=== PATIENT | female | born 1990 | race Caucasian/White ===

== ENCOUNTER 2020-10-25 19:35 | Observation (INO) | payer OTHER, SELFPAY ==
--- NOTE | ~2020-10-25 | CT_ITS ---
EXAMINATION: CT abdomen pelvis w con EXAM DATE: 10/25/2020 20:45 INDICATION: Abdominal pain, periumbilical pain. Recent hernia surgery. TECHNIQUE: Spiral CT of the abdomen and pelvis was performed following intravenous injection of 100 m L Omnipaque 350. Axial, coronal and sagittal images were reviewed. The dose-length product (DLP) fo r this examination was 1447.72 mGy-cm. The exposure was tailored according to patient size (auto mA exposure control), and iterative reconstruction (ASIR) was used as additional dose reduction techniqu e. There is no prior study for comparison. FINDINGS: The umbilicus is unremarkable. There is a small midline abdominal hernia midway between umb ilicus and pubis with ileum bulging inside. (Indicated on axial image 149). Mild small bowel distenti on for couple of loops proximal to the herniated segment, and distally the terminal ileum is collapse d. Material within the small bowel has slightly feculent material, could indicate stasis. To the righ t of the hernia within subcutaneous fat there is a pocket of fluid measuring 16 cm in diameter by 4 c m in thickness, most likely postoperative seroma. The liver, spleen, adrenal glands and pancreas are unremarkable. There are cholecystectomy clips. P ortal and splenic veins are patent. Kidneys enhance symmetrically. There is no hydronephrosis. Ther e is bilateral nephrolithiasis, largest in the right side measuring 7 mm. The uterus is unremarkable . The bladder is unremarkable. There is no retroperitoneal or pelvic lymphadenopathy. The appendix is normal. There is small amount of colonic stool. No free intraperitoneal gas. The heart is normal in size. There are no pericardial or pleural effusions. The lung bases are unremar kable. There are no osteoblastic or osteolytic lesions identified. IMPRESSION: Infraumbilical small hernia containing small bowel loop with mild dilation proximally and evidence of some stasis. Appearance most consistent with partial small bowel obstruction. Consider w ater-soluble follow-through exam. Reviewed, dictated and finalized at location G. ND HULLER IMPRESSION: Infraumbilical small hernia containing small bowel loop with mild d ilation proximally and evidence of some stasis. Appearance most consistent with partial small bowel obstruction. Consider water-soluble follow-through exam.
[2020-10-25 19:44] VITALS: BP 134/68; PULSE 85; RESP 18; O2SAT 99
[2020-10-25] MEDS: SODIUM CHLORIDE 0.9% IV 1,000 ML 150 ML IV CONT (20:09)
[2020-10-25] MEDS: fentaNYL CITRATE INJ (*CRX) 100 MCG/2 ML VIAL 50 MCG IV PUSH (20:09)
[2020-10-25 20:10] LABS: Basophils Absolute Auto 0.1 K/mm3 (0.0-0.1); Basophils Percent Auto 0.5 % (0.2-1.2); Eosinophils Absolute Auto 0.2 K/mm3 (0-0.3); Eosinophils Percent Auto 1.8 % (0-4.4); Hematocrit 42.1 % (37.0-47.0); Hemoglobin 13.2 g/dL (12.0-15.0); Immature Granulocyte Absolute 0.04 K/mm3 (0.00-0.031); Immature Granulocyte Percent A 0.3 % (0-0.5); Lymphocytes Absolute Auto 3.52 K/mm3 (0.9-3.2); Lymphocytes Percent Auto 30.3 % (18.3-44.2); Mean Corpuscular HGB Conc 31.4 g/dl (32-36); Mean Corpuscular Hemoglobin 24.5 pg (26-34); Mean Corpuscular Volume 78.1 fl (80-100); Mean Platelet Volume 11.1 fl (7.4-10.4); Monocytes Absolute Auto 0.6 K/mm3 (0.1-0.6); Monocytes Percent Auto 5.2 % (2.6-8.5); Neutrophils Absolute Auto 7.2 K/mm3 (1.3-6.7); Neutrophils Percent Auto 61.9 % (45.5-73.1); Platelet Count Result 318 k/mm3 (150-375); Red Blood Count 5.39 M/mm3 (4.2-5.4); Red Cell Distribution Width 18.6 % (11.5-14.5); White Blood Count 11.6 K/mm3 (4.5-10.0)
[2020-10-25 20:13] LABS: Add Urine Microscopic? NO; Appearance Urine Clear (Clear); Bilirubin Urine Negative (Negative); Blood Urine Negative (Negative); Color Urine Straw (Yellow); Glucose Urine UA Negative (Negative); Ketones Urine Negative (Negative); Leukocyte Esterase Ur Negative LEU/UL (Negative); Nitrate Urine Negative (Negative); Protein Urine Negative (Negative); Specific Grav Ur 1.008 (1.001-1.035); Urobilinogen Urine Negative mg/dL (<2.0)
[2020-10-25 20:23] LABS: Alanine Aminotransferase 27 U/L (4-35); Albumin Level 4.2 g/dL (3.5-5.1); Alkaline Phosphatase 94 U/L (38-126); Anion Gap 6 mmol/L (8-16); Aspartate Amino Transferase 31 U/L (14-36); Bilirubin,Total 0.3 mg/dL (0.2-1.3); Blood Urea Nitrogen 13 mg/dL (7-17); Calcium 8.8 mg/dL (8.4-10.2); Carbon Dioxide 28 mmol/L (22-30); Chloride 103 mmol/L (98-107); Estimated CRCL calculation 121 ml/min; Estimated Glomerular Filt Rate > 60; Glucose 95 mg/dL (65-105); Potassium 4.1 mmol/L (3.4-5.0); Sodium 137 mmol/L (137-145)
[2020-10-25] MEDS: KETOROLAC 30 MG/ML VIAL (*BKC) IV PUSH (20:56)
[2020-10-25 21:17] LABS: Lactic Acid Reflex 0.8 mmol/L (0.7-2.1)
--- NOTE | 2020-10-25 21:17 | ED.ABDPAIN ---
HPI - Abdominal Pain General Chief Complaint: Abdominal Pain Stated Complaint: abd pain, kidney stone Time Seen by Provider: 10/25/20 19:45 Source: patient Mode of arrival: ambulatory Limitations: no limitations History of Present Illness HPI narrative: 30-year-old with no major medical problems here with complaints of abdominal pain since last 2 days. Patient states that she had umbilical hernia repair a year ago at [facility]. Patient states that she went to the [facility] yesterday for the same, had a CAT scan which showed kidney stone and was discharged home with pain medication however since this afternoon the pain got intense. She denies any nausea or vomiting had diarrhea yesterday. She denies any blood in the urine or blood in the stool. MD elicited complaint: abdominal pain Pertinent past history: none Onset (ago): day(s) (2) Pain Consistency: constant Quality: cramping Exacerbating factors: nothing Relieving factors: nothing Related Data Allergies Allergy/AdvReac Type Severity Reaction Status Date / Time No Known Allergies Allergy Verified 05/12/18 19:55 Review of Systems Review of Systems: All systems reviewed & are unremarkable except as noted in HPI and below Constitutional: Constitutional: Reports no additional constitutional complaints Eyes: Eyes: Reports no additional eye complaints ENT: Reports system reviewed and no additional complaints, except as documented Cardiovascular: Cardiovascular: Reports no additional cardiovascular complaints Respiratory: Respiratory: Reports no additional respiratory complaints Gastrointestinal: Gastrointestinal: Reports as per HPI Genitourinary: Genitourinary: Reports no additional female genitourinary complaints Musculoskeletal: Musculoskeletal: Reports no additional musculoskeletal complaints [facility] Family History Family History Father Family history of diabetes mellitus in first degree relative Sibling Family history of diabetes mellitus in first degree relative Social History Social History Alcohol intake: never Gender identity (if verbalized by the patient): Female Exam Narrative: Exam Narrative: GENERAL: Well-appearing, obese and in no acute distress. HEAD: Normocephalic, atraumatic. EYES: PERRLA and EOMI. ENT: Nares clear, no rhinorrhea or epistaxis. Mucous membranes moist. NECK: Supple. CHEST: Clear to auscultation. No respiratory distress. HEART: Regular rate and rhythm. No murmur heard. Normal peripheral pulses. ABDOMEN: morbidly obese abdomen.tender in the periumbilical area . EXTREMITIES: Normal range of motion. No edema. SKIN: Warm, dry, no rash. NEURO: No focal deficits. Alert and oriented x3. PSYCH: Normal mood and affect. Course Course Emergency Course: Patient does feel comfortable after the pain medication, I discussed labs and CT findings with the patient. Discussed with Dr. Sepulveda who agreed to admit the patient. Vital Signs Vital signs: Vital Signs Pulse Rate 85 10/25/20 19:44 Respiratory Rate 18 10/25/20 19:44 Blood Pressure 134/68 10/25/20 19:44 Pulse Oximetry 99 10/25/20 19:44 Pulse Rate 85 10/25/20 19:44 Respiratory Rate 18 10/25/20 19:44 Blood Pressure 134/68 10/25/20 19:44 Pulse Oximetry 99 10/25/20 19:44 MDM - Abdominal Pain Differential Diagnosis Differential diagnosis: Likely abdominal pain, acute appendicitis, calculus of kidney and gastroenteritis Medical Records Attestation: I reviewed the patient's medical records. Lab Data Result diagrams: 10/25/20 20:00 10/25/20 20:00 Labs: Lab Results 10/25/20 10/25/20 10/25/20 Range/Units 20:00 20:00 20:02 WBC 11.6 H (4.5-10.0) K/mm3 RBC 5.39 (4.2-5.4) M/mm3 Hgb 13.2 (12.0-15.0) g/dL Hct 42.1 (37.0-47.0) % MCV 78.1 L (80-100) fl MCH 24.5 L (26-34) pg MCHC 31.4 L (32-36) g/d
[2020-10-25 21:38] VITALS: BP 142/68; PULSE 68; RESP 16; O2SAT 100
--- NOTE | 2020-10-25 22:23 | ADMGEN ---
This patient, Milli Morales, was admitted to Medical Room 249-01 at 2200. Patient/family oriented to hospital policies and general routines including ID bracelet, bed and alarms, visiting hours, pain management, procedures, bathroom and other care routines, personal items, smoking policy, room service/diet, and visiting hours. Information on how to activate the Rapid Response Team has been discussed. Patient/Family are encouraged to report perceived risks to care and to ask questions if they do not understand what they are told or what they should do.
[2020-10-25 22:30] VITALS: BMI 44.3
[2020-10-25 22:51] VITALS: BP 108/54; PULSE 53; RESP 16; TEMP 36.6; O2SAT 100
[2020-10-25] MEDS: SODIUM CHLORIDE 0.9% IV 1,000 ML 75 ML IV CONT (22:52)
[2020-10-25] MEDS: HYDROmorphone HCL INJ (*CRX) 1 MG/ML SYR 0.5 MG IV PUSH (22:53)
[2020-10-26] VITALS: BP 106/46; PULSE 52; RESP 20; TEMP 36.1; O2SAT 99
[2020-10-26] MEDS: HYDROmorphone HCL INJ (*CRX) 1 MG/ML SYR 0.5 MG IV PUSH ×2 (04:29→09:00)
[2020-10-26] MEDS: NICOTINE (*PBKC) 14 MG PATCH 1 PATCH TRANSDERM (04:30)
[2020-10-26 05:41] LABS: Basophils Absolute Auto 0.1 K/mm3 (0.0-0.1); Basophils Percent Auto 0.8 % (0.2-1.2); Eosinophils Absolute Auto 0.2 K/mm3 (0-0.3); Eosinophils Percent Auto 2.4 % (0-4.4); Hematocrit 37.7 % (37.0-47.0); Hemoglobin 11.5 g/dL (12.0-15.0); Immature Granulocyte Absolute 0.03 K/mm3 (0.00-0.031); Immature Granulocyte Percent A 0.4 % (0-0.5); Lymphocytes Absolute Auto 2.74 K/mm3 (0.9-3.2); Lymphocytes Percent Auto 34.4 % (18.3-44.2); Mean Corpuscular HGB Conc 30.5 g/dl (32-36); Mean Corpuscular Hemoglobin 23.7 pg (26-34); Mean Corpuscular Volume 77.7 fl (80-100); Mean Platelet Volume 11.1 fl (7.4-10.4); Monocytes Absolute Auto 0.6 K/mm3 (0.1-0.6); Monocytes Percent Auto 7.3 % (2.6-8.5); Neutrophils Absolute Auto 4.4 K/mm3 (1.3-6.7); Neutrophils Percent Auto 54.7 % (45.5-73.1); Platelet Count Result 229 k/mm3 (150-375); Red Blood Count 4.85 M/mm3 (4.2-5.4); Red Cell Distribution Width 18.1 % (11.5-14.5)
[2020-10-26 06:00] VITALS: BP 101/50; PULSE 57; RESP 20; TEMP 36.3; O2SAT 98
[2020-10-26 06:54] LABS: Anion Gap 4 mmol/L (8-16); Blood Urea Nitrogen 12 mg/dL (7-17); Calcium 7.9 mg/dL (8.4-10.2); Carbon Dioxide 22 mmol/L (22-30); Chloride 108 mmol/L (98-107); Estimated CRCL calculation 135 ml/min; Estimated Glomerular Filt Rate > 60; Glucose 86 mg/dL (65-105); Potassium 3.9 mmol/L (3.4-5.0); Sodium 134 mmol/L (137-145)
--- NOTE | 2020-10-26 08:54 | PM.IMHP ---
H&P: HPI History of Present Illness Date/Time: 10/26/20 08:54 Chief Complaint: recurrent ventral hernia c incarceration of small bowel Narrative: Milli Morales is a 30 year old female presenting to ED c/o severe periumbilical/lower abdominal pain over last few days. Pt reports pain is intense and constant. Pt denies any obstructive sx but reports poor appetite secondary to pain. Pt reports she had RLQ hernia repair at [facility] on 08/27. Pt reports she initially had done well until this pain started. Pt actually went to [place] for these symptoms but was told to go to another hospital for treatment of kidney stone found on CT. Review of Systems Constitutional: Constitutional: Denies anorexia, Reports body ache(s), Denies chills, Reports fatigue, Denies fever(s), Denies headache(s), Reports lethargy, Denies malaise, Reports poor appetite, Reports weakness, Denies weight gain and Denies weight loss Eyes: Eyes: Reports no additional eye complaints ENT: Reports system reviewed and no additional complaints, except as documented Cardiovascular: Cardiovascular: Reports no additional cardiovascular complaints Respiratory: Respiratory: Reports no additional respiratory complaints Gastrointestinal: Gastrointestinal: Reports abdominal pain, Denies belching, Denies bloating, Denies change in bowel habits, Denies constipation, Reports GI cramping, Denies heartburn, Denies loose stools, Denies nausea and Denies vomiting Genitourinary: Genitourinary: Reports no additional female genitourinary complaints Musculoskeletal: Musculoskeletal: Reports no additional musculoskeletal complaints Integumentary/Breasts: Skin/Breast: Reports system reviewed and no additional complaints, except as docu Neurologic: Reports system reviewed and no additional complaints, except as documented Psychiatric: Psychiatric: Reports no additional psychiatric complaints Endocrine: Endocrine: Reports no additional endocrine complaints Hematologic/Lymphatic: Hematologic/Lymphatic: Reports no additional hematologic/lymphatic complaints Allergic/Immunologic: Allergic/Immunologic: Reports no additional allergic/immunologic complaints [facility] Family History Family History Father Family history of diabetes mellitus in first degree relative Sibling Family history of diabetes mellitus in first degree relative Social History Social History Smoking packs per day: 0.5 Smoking cigarettes per day: 10.0 Years smoked: 15 Smoking pack-years: 7.50 Smoking status: Current every day smoker Tobacco type: cigarettes Alcohol intake: never Substance use: current Substance use type: marijuana Gender identity (if verbalized by the patient): Female Spiritual care concerns: No Comments PMH - tobacco use, RLQ ventral hernia PSxH - RLQ ventral hernia repair Meds Home Medications and Allergies Home Medications Medication Instructions Recorded Confirmed Type No Home Medications 10/25/20 10/25/20 History Allergies Allergy/AdvReac Type Severity Reaction Status Date / Time No Known Allergies Allergy Verified 05/12/18 19:55 Vital Signs Vital Signs - 24 hr 10/25/20 19:44 10/25/20 21:38 10/25/20 22:51 Temperature 36.6 C Pulse Rate 85 68 53 L Respiratory Rate 18 16 16 Blood Pressure 134/68 142/68 H 108/54 L Pulse Oximetry 99 100 100 10/26/20 00:00 10/26/20 06:00 Temperature 36.1 C L 36.3 C L Pulse Rate 52 L 57 L Respiratory Rate 20 20 Blood Pressure 106/46 L 101/50 L Pulse Oximetry 99 98 Exam Const: General: cooperative, acute distress moderate and uncomfortable Nutritional Appearance: obese Orientation/consciousness: patient oriented x3 Limitations: no limitations HENMT: Head: normal to inspection, normocephalic and atraumatic Ears: hearing grossly normal bilaterally General nose exam: Normal exte
[2020-10-26] MEDS: ONDANSETRON INJ 4 MG/2 ML VIAL IV PUSH (09:07)
[2020-10-26 10:00] VITALS: BP 111/60; PULSE 50; RESP 14; TEMP 36.1; O2SAT 100
--- NOTE | 2020-10-26 10:32 | PM.DS ---
DS: Admitting Diagnosis Admitting Diagnosis Admitting Diagnosis: recurrent ventral hernia with incarceration and partial small bowel obstruction DS: Discharge Diagnosis Discharge Diagnosis (1) Recurrent ventral hernia with incarceration: Code(s): K43.0 - Incisional hernia with obstruction, without gangrene Status: Acute Assessment and Plan: pt to see her surgeon today post discharge (2) Partial small bowel obstruction: Code(s): K56.600 - Partial intestinal obstruction, unspecified as to cause Status: Acute Assessment and Plan: alfred diet and having normal bowel fxn at this time, will need urgent repair of hernia DS: Summary Hospital Course Reason for hospitalization: abdominal pain, recurrent ventral hernia Hospital Course: The patient is a 30-year-old female presenting to the emergency department complaining of severe lower abdominal pain. Workup in the emergency department including imaging was significant for recurrent incarcerated ventral hernia with partial small bowel obstruction. The patient was admitted to my service and transferred to the floor. Of note, the patient was able to tolerate a diet at home and was having normal bowel function. After discussion with both patient and her surgeon at [facility], decision was made to send patient there for visit today. The patient will be discharged and will be following up with Dr. Baugh today. Status at Discharge Functional status at discharge: independent ambulation Overall status at discharge: patient is not back to baseline Time Spent with Patient Time attestation: Total time spent providing and/or coordinating discharge services: Time spent: Less than 30 minutes Exam Const: General: cooperative and acute distress moderate Nutritional Appearance: obese Orientation/consciousness: patient oriented x3 Limitations: no limitations Resp: Effort & Inspection: normal respiratory effort Auscultation: clear to auscultation bilaterally Cardio: Jugular venous distension: no JVD Rate: regular rate Rhythm: regular rhythm GI: Inspection: distended and incision GI Palp: Yes abdominal tenderness, Yes Soft to palpation, No Firmness to palpation present (GI), Yes Tenderness to palpation present (GI), No Guarding due to palpation present (GI) and No Rigid due to palpation DS: Data Data Completed and Pending Labs on day of discharge: Labs from last 24 hours 10/26/20 10/26/20 10/25/20 06:26 05:27 21:01 WBC 8.0 RBC 4.85 Hgb 11.5 L Hct 37.7 MCV 77.7 L MCH 23.7 L MCHC 30.5 L RDW 18.1 H Plt Count 229 MPV 11.1 H Immature Gran % (Auto) 0.4 Neut % (Auto) 54.7 Lymph % (Auto) 34.4 [place] % (Auto) 7.3 Eos % (Auto) 2.4 Baso % (Auto) 0.8 Lymph # (Auto) 2.74 [place] # (Auto) 0.6 Eos # (Auto) 0.2 Baso # (Auto) 0.1 Abs Immat Gran (auto) 0.03 Absolute Neuts (auto) 4.4 Absolute Nucleated RBC 0.0 Nucleated RBC % 0.0 Sodium 134 L Potassium 3.9 Chloride 108 H Carbon Dioxide 22 Anion Gap 4 L BUN 12 Creatinine 0.70 Estim Creat Clear Calc 135 Estimated GFR > 60 Glucose 86 Lactic Acid 0.8 Calcium 7.9 L Total Bilirubin AST ALT Alkaline Phosphatase Total Protein Albumin Urine Color Urine Appearance Urine pH Ur Specific [place] Urine Protein Urine Glucose (UA) Urine Ketones Ur Blood (Man) Urine Nitrate Urine Bilirubin Urine Urobilinogen Leukocyte Esterase Rfl 10/25/20 10/25/20 10/25/20 20:02 20:00 20:00 WBC 11.6 H RBC 5.39 Hgb 13.2 Hct 42.1 MCV 78.1 L MCH 24.5 L MCHC 31.4 L RDW 18.6 H Plt Count 318 MPV 11.1 H Immature Gran % (Auto) 0.3 Neut % (Auto) 61.9 Lymph % (Auto) 30.3 [place] % (Auto) 5.2 Eos % (Auto) 1.8 Baso % (Auto) 0.5 Lymph # (Auto) 3.52 H [place] # (Auto) 0.6 Eos # (Auto) 0.2 Baso # (Auto)
== END 2020-10-26 11:00 | disposition home or self-care (01) ==
LOC: ANHED 21:25 → ANH2MED 21:50
PROVIDERS: Admitting Provider Surgery; Emergency Provider Family Medicine; PCP Internal Medicine; Visit Provider Surgery
DX: K43.0 Incisional hernia with obstruction, without gangrene (principal); K56.600 Partial intestinal obstruction, unspecified as to cause; R10.9 Unspecified abdominal pain; Z72.0 Tobacco use
CPT/HCPCS: 36415; 74177; 80048; 80053; 81003; 83605; 85025; 96361; 96374; 96375; 96376; 99285; A9270; G0378; G0379; J1170; J1885; J2405; J3010; J7030; Q9967

== ENCOUNTER 2021-06-19 06:53 | Emergency (ER) | payer OTHER, SELFPAY ==
--- NOTE | ~2021-06-19 | CT_ITS ---
EXAMINATION: CT abdomen pelvis wo con EXAM DATE: 06/19/2021 08:44 INDICATION: Bilateral flank pain, hematuria. History kidney stones. TECHNIQUE: Spiral CT of the abdomen and pelvis was performed without contrast. Axial, coronal and sag ittal images were reviewed. The dose-length product (DLP) for this examination was 803.69 mGy-cm. T he exposure was tailored according to patient size (auto mA exposure control), and iterative reconstr uction (ASIR) was used as additional dose reduction technique. Comparison is made to prior examinatio n from 10/25/2020. FINDINGS: Mildly hyperdense in renal medullas, mild medullary nephrocalcinosis. There is a right infe rior calyceal stone measuring 8 mm. Several other punctate calyceal stones bilaterally. There is [place] 2 mm density along the course of the left ureter, but suspected more likely vascular than nonobs tructing ureteral stone. The uterus is anteverted and morphologically normal. The bladder is unremarkable. The liver, splee n, adrenal glands and pancreas are unremarkable. There are cholecystectomy clips. There is no retro peritoneal or pelvic lymphadenopathy. section scar. The appendix is normal. The stomach and small bowel are unremarkable. There is expected amount of c olonic stool. No free intraperitoneal gas. The heart is normal in size. There are no pericardial or pleural effusions. The lung bases are unremarkable. There are no osteoblastic or osteolytic les ions identified. IMPRESSION: 1. Medullary nephrocalcinosis and nephrolithiasis. 2. No acute findings. Reviewed, dictated and finalized at location B.
[2021-06-19 06:57] VITALS: BP 137/90; PULSE 64; RESP 18; TEMP 36.4; O2SAT 98
--- NOTE | 2021-06-19 07:07 | ED.ABDPAIN ---
HPI - Abdominal Pain General Chief Complaint: Abdominal Pain Stated Complaint: right flank pain Time Seen by Provider: 06/19/21 07:02 Source: patient Mode of arrival: ambulatory Limitations: no limitations History of Present Illness HPI narrative: Patient is a 30-year-old female complaining of right flank pain, 9 out of 10, sharp, nonradiating started 2 to 3 days ago. Patient denies any chest pain, shortness of breath, nausea, vomiting, fever, chills or urinary symptoms. Patient states that she's had similar episodes in the past, history of kidney stones Related Data Allergies Allergy/AdvReac Type Severity Reaction Status Date / Time No Known Allergies Allergy Verified 06/19/21 07:03 Review of Systems Review of Systems: All systems reviewed & are unremarkable except as noted in HPI and below Constitutional: Constitutional: Denies body ache(s), Denies chills, Denies excessive sweating, Denies fatigue, Denies fever(s), Denies headache(s), Denies lethargy, Denies malaise, Denies weakness and Denies weight loss Eyes: Eyes: Denies blurry vision, Denies change in vision and Denies loss of vision ENT: Denies dizziness, Denies ear discharge, Denies headache(s), Denies lip swelling, Denies epistaxis, Denies nasal congestion, Denies neck pain, Denies throat swelling and Denies tongue swelling Cardiovascular: Cardiovascular: Denies chest pain, Denies chest pain at rest, Denies chest pain with activity, Denies diaphoresis, Denies rapid heart rate, Denies edema, Denies irregular heart rhythm, Denies lightheadedness, Denies palpitations, Denies dyspnea and Denies dyspnea on exertion Respiratory: Respiratory: Denies chest congestion, Denies cough, Denies hemoptysis, Denies dyspnea and Denies dyspnea on exertion Gastrointestinal: Gastrointestinal: Denies abdominal pain, Denies melena, Denies hematochezia, Denies diarrhea, Denies nausea, Denies vomiting and Denies hematemesis Musculoskeletal: Musculoskeletal: Denies abnormal gait, Denies deformity, Denies joint swelling, Denies limited range of motion, Denies neck pain and Denies numbness Neurologic: Denies Abnormal speech present, Denies abnormal gait, Denies confusion, Denies dizziness, Denies headache(s), Denies focal weakness, Denies loss of vision, Denies numbness, Denies Other visual disturbances, Denies Sensory deficit (Neuro) and Denies weakness Psychiatric: Psychiatric: Denies confusion, Denies depression, Denies auditory hallucinations, Denies homicidal ideation and Denies suicidal ideation Endocrine: Endocrine: Denies cold intolerance, Denies excessive sweating, Denies fatigue, Denies heat intolerance and Denies palpitations Hematologic/Lymphatic: Hematologic/Lymphatic: Denies easy bleeding and Denies easy bruising Allergic/Immunologic: Allergic/Immunologic: Denies lip swelling, Denies throat swelling and Denies tongue swelling PMFSH Family History Family History Father Family history of diabetes mellitus in first degree relative Sibling Family history of diabetes mellitus in first degree relative Social History Social History Smoking packs per day: 0.5 Smoking cigarettes per day: 10.0 Years smoked: 15 Smoking pack-years: 7.50 Smoking status: Current every day smoker Tobacco type: cigarettes Alcohol intake: never Substance use: current Substance use type: marijuana Gender identity (if verbalized by the patient): Female Spiritual care concerns: No Comments Past medical history: Kidney stones Exam Const: General: cooperative, healthy appearing, comfortable, no acute distress, well developed, alert and awake; No confusion Orientation/consciousness: oriented to person, oriented to place, oriented to time, patient oriented x3 and No confusion Limitations: no limitations HENMT: Head: normal to inspection, normocephalic and atraumatic Ears: hear
[2021-06-19 07:18] LABS: Basophils Absolute Auto 0.1 K/mm3 (0.0-0.1); Basophils Percent Auto 0.7 % (0.2-1.2); Eosinophils Absolute Auto 0.2 K/mm3 (0-0.3); Eosinophils Percent Auto 2.2 % (0-4.4); Hematocrit 42.6 % (37.0-47.0); Immature Granulocyte Absolute 0.02 K/mm3 (0.00-0.031); Immature Granulocyte Percent A 0.2 % (0-0.5); Lymphocytes Absolute Auto 2.93 K/mm3 (0.9-3.2); Lymphocytes Percent Auto 31.9 % (18.3-44.2); Mean Corpuscular HGB Conc 30.5 g/dl (32-36); Mean Corpuscular Hemoglobin 23.9 pg (26-34); Mean Corpuscular Volume 78.3 fl (80-100); Mean Platelet Volume 10.8 fl (7.4-10.4); Monocytes Absolute Auto 0.5 K/mm3 (0.1-0.6); Monocytes Percent Auto 5.8 % (2.6-8.5); Neutrophils Absolute Auto 5.4 K/mm3 (1.3-6.7); Neutrophils Percent Auto 59.2 % (45.5-73.1); Platelet Count Result 306 k/mm3 (150-375); Red Blood Count 5.44 M/mm3 (4.2-5.4); Red Cell Distribution Width 18.2 % (11.5-14.5); White Blood Count 9.2 K/mm3 (4.5-10.0)
[2021-06-19 07:30] LABS: Alanine Aminotransferase 57 U/L (4-35); Albumin Level 3.9 g/dL (3.5-5.1); Alkaline Phosphatase 79 U/L (38-126); Anion Gap 13 mmol/L (8-16); Aspartate Amino Transferase 45 U/L (14-36); Bilirubin,Total 0.2 mg/dL (0.2-1.3); Blood Urea Nitrogen 12 mg/dL (7-17); Calcium 9.2 mg/dL (8.4-10.2); Carbon Dioxide 23 mmol/L (22-30); Chloride 102 mmol/L (98-107); Estimated CRCL calculation 131 ml/min; Estimated Glomerular Filt Rate > 60; Glucose 108 mg/dL (65-110); Lipase 55 U/L (23-300); Potassium 4.5 mmol/L (3.4-5.0); Sodium 138 mmol/L (137-145)
[2021-06-19] MEDS: SODIUM CHLORIDE 0.9% IV 1,000 ML 999 ML IV CONT (07:31)
[2021-06-19] MEDS: KETOROLAC 30 MG/ML VIAL (*BKC) IV PUSH (07:31)
[2021-06-19 08:26] LABS: Beta HCG Quantitative < 2.39 mIU/ML
[2021-06-19 08:54] LABS: Add Urine Microscopic? YES; Appearance Urine Cloudy (Clear); Bilirubin Urine Negative (Negative); Blood Urine 2+ (Negative); Color Urine Yellow (Yellow); Glucose Urine UA Negative (Negative); Ketones Urine Negative (Negative); Leukocyte Esterase Ur Trace LEU/UL (Negative); Mucus Urine Rare /lpf; Nitrate Urine Negative (Negative); Protein Urine Negative (Negative); Specific Grav Ur 1.011 (1.001-1.035); Squamous Epithelial Cell Urine Many /hpf (Few); Urobilinogen Urine Negative mg/dL (<2.0)
[2021-06-19 09:45] VITALS: BP 136/90; PULSE 80; RESP 16; O2SAT 100
[2021-06-19] MEDS: HYDROcodone/acetaminophen (*CRX) 5-325 MG TABLET 2 TAB PO (09:46)
== END 2021-06-19 09:45 | disposition home or self-care (01) ==
PROVIDERS: Emergency Medicine; Emergency Provider Emergency Medicine; PCP Internal Medicine
DX: R10.9 Unspecified abdominal pain (principal); F17.210 Nicotine dependence, cigarettes, uncomplicated
CPT/HCPCS: 36415; 74176; 80053; 81001; 83690; 84702; 85025; 96361; 96374; 99284; A9270; J1885; J7030

== ENCOUNTER 2022-09-08 12:27 | Emergency (ER) | payer OTHER, SELFPAY ==
[2022-09-08] VITALS (11 sets, daily range): BP systolic 101–134; BP diastolic 46–94; PULSE 55–60; RESP 16; TEMP 36.7; O2SAT 92–100
--- NOTE | ~2022-09-08 | CT_ITS ---
EXAMINATION: CT abdomen pelvis wo con DATE: 09/08/2022 17:33 INDICATION: right flank pain TECHNIQUE: Computed tomography (CT) of the abdomen and pelvis was performed without intravenous contr ast. Automated exposure control and iterative reconstruction technique were employed. The dose-length product was 878.43 mGy-cm. COMPARISON: 06/19/2021. FINDINGS: Lower thorax: Unremarkable Liver: Enlarged. Biliary/Gallbladder: Gallbladder is absent. No bile duct dilation. Pancreas: No mass or duct dilation. Spleen: Normal. Adrenals:No mass. Kidneys: Medullary nephrocalcinosis. Multiple bilateral nonobstructing renal calcifications. Right ur eteral stent in good position. Mild right ureterectasis and surrounding inflammatory change. GI tract: No small or large bowel dilation. Normal appendix. Mesentery/Peritoneum: No ascites, mass, or free air. Retroperitoneum: No mass. Pelvis: Pelvic organs are within normal limits. Soft Tissues: Lower abdominal surgical scar. Midline lower abdominal ventral hernia containing fat a portion of a loop of nonobstructed small bowel. Small volume fluid within the hernia sac. Bones: No acute osseous finding. IMPRESSION: Hepatomegaly. Right nephroureteral stent, in good position. Right periureteral stranding, as can be s een with ascending infection. Reviewed, dictated and finalized at location K. ET POST INSPECTOR IMPRESSION: Hepatomegaly. Right nephroureteral stent, in good position. Right periureteral stranding, as can be seen with ascending infection.
[2022-09-08 12:55] LABS: Basophils Absolute Auto 0.1 K/mm3 (0.0-0.1); Basophils Percent Auto 0.6 % (0.2-1.2); Eosinophils Absolute Auto 0.2 K/mm3 (0-0.3); Eosinophils Percent Auto 2.6 % (0-4.4); Hematocrit 41.8 % (37.0-47.0); Hemoglobin 13.4 g/dL (12.0-15.0); Immature Granulocyte Absolute 0.02 K/mm3 (0.00-0.031); Immature Granulocyte Percent A 0.2 % (0-0.5); Lymphocytes Absolute Auto 2.68 K/mm3 (0.9-3.2); Mean Corpuscular HGB Conc 32.1 g/dl (32-36); Mean Corpuscular Hemoglobin 25.7 pg (26-34); Mean Corpuscular Volume 80.1 fl (80-100); Mean Platelet Volume 10.7 fl (7.4-10.4); Monocytes Absolute Auto 0.5 K/mm3 (0.1-0.6); Monocytes Percent Auto 6.4 % (2.6-8.5); Neutrophils Absolute Auto 4.6 K/mm3 (1.3-6.7); Neutrophils Percent Auto 57.2 % (45.5-73.1); Platelet Count Result 289 k/mm3 (150-375); Red Blood Count 5.22 M/mm3 (4.2-5.4); Red Cell Distribution Width 15.9 % (11.5-14.5); White Blood Count 8.1 K/mm3 (4.5-10.0)
[2022-09-08 13:06] LABS: Alanine Aminotransferase 26 U/L (6-35); Albumin Level 3.7 g/dL (3.5-5.1); Alkaline Phosphatase 71 U/L (38-126); Anion Gap 7 mmol/L (8-16); Aspartate Amino Transferase 23 U/L (14-36); Bilirubin,Total 0.3 mg/dL (0.2-1.3); Blood Urea Nitrogen 13 mg/dL (7-17); Calcium 8.8 mg/dL (8.4-10.2); Carbon Dioxide 24 mmol/L (22-30); Chloride 105 mmol/L (98-107); Estimated CRCL calculation 119 ml/min; Estimated Glomerular Filt Rate > 60; Glucose 89 mg/dL (65-110); Lipase 25 U/L (23-300); Potassium 4.4 mmol/L (3.4-5.0); Sodium 136 mmol/L (137-145)
[2022-09-08 13:24] LABS: Appearance Urine Cloudy (Clear); Bilirubin Urine Negative (Negative); Blood Urine 3+ (Negative); Color Urine Yellow (Yellow); Glucose Urine UA Negative (Negative); Ketones Urine Negative (Negative); Leukocyte Esterase Ur 2+ LEU/UL (Negative); Nitrate Urine Negative (Negative); Protein Urine 3+ mg/dL (Negative); Specific Grav Ur 1.025 (1.001-1.035); Urobilinogen Urine 0.2 mg/dL (<2.0); pH Urine 6.5 (5.0-9.0)
[2022-09-08 13:52] LABS: Mucus Urine Few /lpf; RBC Urine >75 /hpf (0-2); Squamous Epithelial Cell Urine Few /hpf (Few); WBC Urine >75 /hpf
[2022-09-08 14:04] LABS: Add Urine Microscopic? YES
--- NOTE | 2022-09-08 17:19 | ED.GENADULT ---
HPI - General Adult General Chief complaint: Urogenital-Female Stated complaint: KIDNEY STONE Time Seen by Provider: 09/08/22 15:49 History of Present Illness HPI narrative: 32-year-old female history of ureteral calculi presenting to the emergency department for evaluation of right flank pain. Patient states that she does have a known kidney stone on the right side has been following up with urology at [facility]. Patient was supposed to have the stent removed approximately 2 weeks ago but this was initially delayed. Patient then had to delay it again last week and patient is actually scheduled for removal of the stent at [place] on Thursday. Patient had been on Bactrim, terazosin and [place]. Patient is still taking her Bactrim but states she is out of the [place] and states her pain is uncontrolled at this point. Patient states she has had no worsening of her pain but just does not have medication to take care of it. Patient does report pain with urination but states this has been constant and is unchanged. Patient denies any fevers. Patient denies any nausea vomiting or diarrhea. Related Data Allergies Allergy/AdvReac Type Severity Reaction Status Date / Time No Known Allergies Allergy Verified 06/19/21 07:03 Review of Systems Review of Systems: CONSTITUTIONAL: Denies fever, chills, or sweats. EYES: Denies visual changes, redness, or discharge. ENT: Denies rhinorrhea, congestion, sore throat, or otalgia. CARDIOVASCULAR: Denies chest pain, palpitations, or edema. RESPIRATORY: Denies cough or dyspnea. GASTROINTESTINAL: See HPI GENITOURINARY: See HPI SKIN: Denies rash or itching. MUSCULOSKELETAL: Denies back pain, joint pain, or myalgia. NEUROLOGIC: Denies headache, numbness, or weakness. [facility] Family History Family History Father Family history of diabetes mellitus in first degree relative Sibling Family history of diabetes mellitus in first degree relative Social History Social History Smoking packs per day: 0.5 Smoking cigarettes per day: 10.0 Years smoked: 15 Smoking pack-years: 7.50 Smoking status: Current every day smoker Tobacco type: cigarettes Alcohol intake: never Substance use: current Substance use type: marijuana Gender identity (if verbalized by the patient): Female Spiritual care concerns: No Exam Narrative: APPEARANCE: Well appearing, no pain, no distress, well-nourished. HEAD: normocephalic, atraumatic. EYES: PERRLA/EOMI, conjunctivae clear. NOSE: Normal no drainage THROAT: Pharynx clear, no exudate. NECK: Supple. No adenopathy, no masses. RESPIRATORY: Airway patent, respirations nonlabored. Clear to auscultation bilaterally, no rales, rhonchi, wheezing. CARDIOVASCULAR: Regular rate and rhythm without murmurs rubs or gallops. ABDOMINAL: Soft, nontender, nondistended, normal bowel sounds MUSCULOSKELETAL: Moves all extremities. Strength/ROM intact, No edema, No calf tenderness. NEURO: Alert. Cranial nerves II through XII intact. Grossly intact SKIN: Warm, dry. Normal Color Course Course Emergency Course: Patient was afebrile with no leukocytosis. Patient's creatinine is at baseline. Patient does have blood on the UA. Patient also has elevated white blood cells. Patient states she has had no change in pain with urination. Patient denies any fevers. Patient is still currently taking Bactrim. Patient was treated with a dose of Rocephin. Patient was initially provided medications for pain control as well. Pharmacy called after patient was discharged and states that the patient also filled a dose of tramadol today by urology. The [place] prescription was canceled. Vital Signs Vital signs: Vital Signs Temperature 98.1 F 09/08/22 12:33 Pulse Rate 60 09/08/22 12:33 Respiratory Rate 16 09/08/22 12:33 Blood Pressure 134/94 H 09/08/22 12:33 Pulse Ox
[2022-09-08] MEDS: HYDROmorphone HCL INJ (*CRX) 1 MG/ML SYR IV PUSH (17:35)
== END 2022-09-08 19:38 | disposition home or self-care (01) ==
PROVIDERS: Emergency Provider Emergency Medicine; PCP Internal Medicine
DX: R10.9 Unspecified abdominal pain (principal); Z96.0 Presence of urogenital implants; F17.210 Nicotine dependence, cigarettes, uncomplicated; R16.0 Hepatomegaly, not elsewhere classified
CPT/HCPCS: 36415; 74176; 80053; 81001; 81025; 83690; 85025; 87077; 87086; 87088; 87186; 96365; 96375; 99284; J0696; J1170

== ENCOUNTER 2025-08-22 14:11 | Emergency (ER) | payer SELFPAY ==
--- OUTSIDE RECORDS SUMMARY | 2024-10-28 03:40 | XMS_ITS ---
Author Organization [facility] Address [address] [place] [address] Care Team Providers Care Rug Dry Room Attendant Name Role Phone Ger Rivera Primary Care Provider REASON FOR VISIT physical for Social security Social History Sex Assigned At : Social History Observation Description Sex Assigned At Female Encounters Encounter Location Date Provider Diagnosis [address] [address] 10/28/2024 Ger Rivera Plan Of Treatment No Information Progress Notes * Milli FRANCOISDOB:[birth year] (34 yo F)Acc No.[id number]:10/28/2024 UNLOCKED PROGRESS NOTE Patient: Milli AMIN Provider: DENIS Layne, AGPCNP-BC :1990 A ge:34 Y S ex:Female Date:10/28/2024 Address:[address], [place], [place] Subjective: * Chief Complaints: * 1 . physical for Social security. * Medical History: Objective: * Vitals: Assessment: Plan: * Treatment: * * Electronic signature of Fernando Rivera APRN, [phone] on 08/22/2025 at 03:41 PM GEOTHERMAL OPERATIONS MANAGER Sign off status: Pending * Provider: DENIS Layne, AGPCNP-BC Date: 0 10/28/2024 Generated for Printing/Faxing/eTransmitting on: 1 10/22/2024 03:41 PM GEOTHERMAL OPERATIONS MANAGER
[2025-08-22 14:22] VITALS: BP 144/77; PULSE 79; RESP 18; TEMP 36.9; O2SAT 100
--- NOTE | 2025-08-22 14:54 | ED.FEMALEGU ---
HPI - Female Genitourinary General Chief complaint: Urogenital-Female Stated complaint: UTI Time Seen by Provider: 08/22/25 14:40 Source: patient, RN notes reviewed and old records reviewed Mode of arrival: ambulatory Limitations: no limitations History of Present Illness HPI Narrative: 34 year old female who presents to [facility] with complaints of burning, frequency of urination for the past 2 days. Patient reports that she has some pressure in bladder and hurts at end of stream also. Patient reports that she has been taking AZO for her symptoms with last dose taken this morning. Patient reports no back pain or flank pain denies any fevrs chills or sweats, denies any nausea or vomiting or any diarrhea. Patient reports no back pain or any flank pain at this time and has history of previous kidney stones. Patient reports no concern for STI exposure. MD elicited complaint: dysuria Onset (ago): day(s) (2) Location of symptoms: suprapubic (bladder pressure) and urethra Severity scale (1-10): 7 Quality of pain: aching and other (pressure) Vaginal discharge: none Vaginal bleeding: none Treatment prior to arrival: OTC urinary analgesics (AZO last dose in am) Related Data Home Medications ?Medication ?Instructions ?Recorded ?Confirmed ?Last Taken ?Type bupropion HCl PO 08/22/25 Unknown History lisdexamfetamine 40 mg capsule 40 mg PO DAILY 08/22/25 Unknown History (Erlin) Allergies Allergy/AdvReac Type Severity Reaction Status Date / Time No Known Allergies Allergy Verified 08/22/25 14:20 Review of Systems Review of Systems: CONSTITUTIONAL: Denies fever, chills, or sweats. CARDIOVASCULAR: Denies chest pain, palpitations, or edema. RESPIRATORY: Denies cough or dyspnea. GASTROINTESTINAL: Denies abdominal pain, nausea, vomiting, or diarrhea. GENITOURINARY: Reports dysuria, frequency, urgency. Denies flank pain or hematuria. SKIN: Denies rash or itching. MUSCULOSKELETAL: Denies back pain or myalgia. 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8 Pulmonary embolism after C section 2018 Adult ADHD Kidney stone Anxiety and depression Surgical History Surgical History (Updated 08/23/25 @ 15:09 by Genesis Erickson APRN) History of cholecystectomy H/O ventral hernia repair History of x4 History of tonsillectomy Family History Family History Father Family history of diabetes mellitus in first degree relative Sibling Family history of diabetes mellitus in first degree relative Social History Social History Smoking packs per day: 0.5 Smoking cigarettes per day: 10.0 Years smoked: 15 Smoking pack-years: 7.50 Smoking status: Current every day smoker Tobacco type: cigarettes Alcohol intake: never Substance use: current Substance use type: marijuana Gender identity (if verbalized by the patient): Female Spiritual care concerns: No Comments At time of signature, agree with nursing past medical, surgical, social and family history. There is no relevant family history pertinent to the presenting complaint Exam Narrative: GENERAL: Well-appearing, well-nourished, and in no acute distress. HEAD: Normocephalic, atraumatic. NECK: Supple. CHEST: Clear to auscultation. No respiratory distress.no cough or congestion noted SAO2 100% on room air HEART: Regular rate and rhythm. No murmur heard. Normal peripheral pulses. ABDOMEN: Soft, nontender, nondistended, normal active bowel sounds. No CVA tenderness no hematuria visible, positive for burning frequency urgency bladder pressure EXTREMITIES: Normal range of motion. No edema. SKIN: Warm, dry, no rash. NEURO: No focal deficits. Alert and oriented x3. Course Course Emergency Course: Patient is aware of diagnosis, understands and agrees to treatment plan.? Anticipatory guidance given.? Patient agrees to follow-up as directed and is aware of reasons to seek care at the emergency department. Portions of this record may have been created with voice recognition software Level of Care: Express Care Visit Vital Signs Vital signs: Vital Signs Temperature 36.9 C 08/22/25 14:22 Pulse Rate 79 08/22/25 14:22 Respiratory Rate 18 08/22/25 14:22 Blood Pressure 144/77 H 08/22/25 14:22 Pulse Oximetry 100 08/22/25 14:22 Oxygen Delivery Room Air 08/22/25 14:22 Temperature 36.9 C 08/22/25 14:22 Pulse Rate 79 08/22/25 14:22 Respiratory Rate 18 08/22/25 14:22 Blood Pressure 144/77 H 08/22/25 14:22 Pulse Oximetry 100 08/22/25 14:22 Oxygen Delivery Room Air 08/22/25 14:22 MDM - Female Genitourinary MDM Narrative Medical decision making narrative: Exam findings and UA show no acute concerns or changes; patient is non-toxic appearing and is in no distress.? Patient is appropriate for outpatient treatment and follow-up. Differential Diagnosis Differential diagnosis: Likely urinary tract infection, cystitis and other (dysuria) Medical Records Attestation: I reviewed the patient's medical records. Lab Data Attestation: I reviewed the patient's lab results. Lab results narrative: unable to do urine dip due to AZO use, urine culture sent for analysis Critical Care Time Critical Care Time Critical Care Time: No Discharge Plan Discharge Clinical Impression: UTI (urinary tract infection) Qualifiers: Urinary tract infection type: site unspecified Hematuria presence: with hematuria Qualified Code(s): N39.0 - Urinary tract infection, site not specified Patient Disposition: Home Condition: Stable Instructions: Antibiotic Form, Urinary Urgency and Frequency (DC) Additional Instructions: Increase fluids especially cranberry juice and water Avoid caffeine and carbonated beverages Antibiotic as directed Tylenol/ibuprofen for pain or fever Follow-up with her primary care provider if further problems or concerns Recheck if you have fever over 101, nausea and vomiting. If your symptoms persist, change or worsen significantly before you can contact your personal physician then please, without delay, go to the emergency department for further evaluation. Follow-up with PCP in 7-10 days or sooner if needed Follow up with PCP soon in regards to your blood pressure which is elevated above threshold for referral. Blood pressure above 120/80 may indicate pre-hypertension. Patient Language: Persian Prescriptions: New amoxicillin-pot clavulanate 875-125 mg tablet 1 tablet PO Q12H Qty: 14 0RF Rx Instructions: take with food recommend taking a probiotic while you are on this medication or eating Activia yogurt No Action lisdexamfetamine [Vyvanse] 40 mg capsule 40 mg PO DAILY bupropion HCl [Wellbutrin SR] PO Follow-up/Referrals: UNKNOWN,DOCTOR [Primary Care Provider] Time of Disposition: 15:10 Quality [place] Coma Scale Eyes: Open Verbal: Oriented and Alert Motor: Follows Commands Jojo Coma Total Score: 15
--- OUTSIDE RECORDS SUMMARY | 2025-08-22 15:40 | XMS_ITS | Clinical Summary ---
Author Organization [facility] Address [address] [place] [address] Care Team Providers Care Steel Detailer Name Role Phone Gurjit Bermudez MD Primary Care Provider [phone] Source Comments [facility],non-owned Affiliates and Associated Physician Practices is amultiple site organization consisting of ambulatory clinics and hospital sitesin [place], [place], [place] and [place]. This disclosure is being madepursuant to the Care Everywhere program and may not contain all information available regarding this patient. Last updated 18.[facility] Allergies No known active allergies Medications * Be aware that medications may not be up to date on this document. Alwaysverify current medications with the patient. buPROPion SR 12hr (WELLBUTRIN-SR) 150 MG tablet Take 150 mg by mouth once daily 06/14/2019 Active Iron-Vitamin C (VITRON-C PO) Take by mouth once daily Active Active Problems No known active problems Family History Medical History Relation Name Comments Diabetes - Type 2 Father Hypertension Father COPD - Chronic Obstructive Pulmonary Disease Maternal Grandfather COPD - Chronic Obstructive Pulmonary Disease Maternal Grandmother Seizures Mother Diabetes - Type 1 Sister Relation Name Status Comments Father Maternal Grandfather Maternal Grandmother Mother Sister Social History Tobacco Use Types Packs/Day Years Used Date Smoking Tobacco: Every Day Cigarettes Smokeless Tobacco: Never Tobacco Cessation:Ready to Q uit: Not Asked; Counseling Given: Not Answered Comments:5-6 cigs/day Alcohol Use Standard Drinks/Week Comments No 0 (1 standard drink = 0.6 oz pur e alcohol) AUDIT-C Answer Date Recorded Frequency of Alcohol Consumption Not on file 08/28/2023 Q2: How many drinks containi ng alcohol do you have on a typical day when you are drinking? Patient does not drink Frequency of Binge Drinking Not on file 08/19 Comments No Sex and Gender Information Value Date Recorded Sex Assigned at Female 10/29/2021 9:09 AM FUNERAL PLANNING COUNSELOR Legal Sex Female 11:07 PM FUNERAL PLANNING COUNSELOR Gender Identity Female 10/29/2021 9:09 AM FUNERAL PLANNING COUNSELOR Sexual Orientation Not on file Last Filed Vital Signs Vital Sign Reading Time Taken Comments Blood Pressure 111/84 08/29/2023 3:20 AM FUNERAL PLANNING COUNSELOR Pulse 69 08/29/2023 3:20 AM FUNERAL PLANNING COUNSELOR Temperature 36.3 C (97.3 F) 08/29/2023 3:20 AM FUNERAL PLANNING COUNSELOR Respiratory Rate 20 08/29/2023 3:20 AM FUNERAL PLANNING COUNSELOR Oxygen Saturation 100% 08/29/2023 3:20 AM FUNERAL PLANNING COUNSELOR Inhaled Oxygen Concentration - - Weight 124.7 kg (275 lb) 08/28/2023 11:26 PM FUNERAL PLANNING COUNSELOR Height 167.6 cm (5' 6) 08/28/2023 11:26 PM FUNERAL PLANNING COUNSELOR Body Mass Index 44.39 08/28/2023 11:26 PM FUNERAL PLANNING COUNSELOR Plan of Treatment Health Maintenance Due Date Last Done Comments HIV SCREENING 2004 HEPATITIS C SCREENING 08/20/2007 DTAP/TDAP/TD VACCINES (1 - Tdap) 2008 HEPATITIS B VACCINE (1 of 3 - 19+ 3-dose series) 2008 PNEUMOCOCCAL VACCINE (1 of 2 - PCV) 2008 PAP SMEAR 2010 HPV VACCINE (1 - 3-dose SCDM series) 2016 DEPRESSION SCREENING 10/19/2024 COVID-19 VACCINE (1 - 2023-2 5 season) 2025 INFLUENZA VACCINE (#1) 2025 ZOSTER VACCINE (1 of 2) 2039 HIB VACCINE Aged Out No longer eligi ble based on patient's age to complete this topic MENINGOCOCCAL (Group B) VACC INE SHARED DECISION-MAKING Aged Out No longer eligibl e based on patient's age to complete this topic MENINGOCOCCAL GROUPS A/C/Y/W VACCINE Aged Out No longer eligible b ased on patient's age to complete this topic Insurance * Guarantor: [employer]UMER[employer] Account Type Relation to Patient Date of Phone Billing Address Personal/Family 1990 [address] [place] [address] [facility] Care Teams Steel Detailer Relationship Specialty [place] [address] [place] [address] [phone] PCP - General Internal Medicine 05/25/19
--- OUTSIDE RECORDS SUMMARY | 2025-08-22 15:40 | XMS_ITS | Encounter Summary ---
Author Organization [facility] Address [address] [place] [address] Phone Care Team Providers Care Mop Handle Assembler Name Role Phone Junie Ariza APRN, CNP Primary Care Prov ider Felix Estrada DO Unavailable [phone] Encounter Details Date Type Department Care Team (Late st Contact Info) Description 03/04/2022 Telephone [facility] [address] [place] [address] Felix Estrada, DO [address] [place] [address] Social History Tobacco Use Types Packs/Day Years Used Date Smoking Tobacco: Every Day Cigarettes 0.5 15 Smokeless Tobacco: Never Alcohol Use Standard Drinks/Week Comments Never 0 (1 standard drink = 0.6 oz pur e alcohol) PHQ-2 Answer Date Recorded Total Score - Questions 1-9 0 01/17 Comments Unknown Sex and Gender Information Value Date Recorded Sex Assigned at Not on file Legal Sex Female 8:58 AM MIX CHEMIST Gender Identity Not on file Sexual Orientation Not on file COVID-19 Exposure Response Date Recorded In the last 10 days, have yo u been in contact with someone who was confirmed or suspected to have Coronavirus/COVID-19? No / Unsure 02/04/2022 9:46 AM CDT documented as of this encounter Miscellaneous Notes * Telephone Encounter - Mirella Velazquez - 03/04/2022 11:13 AM CDT PT HAD AN OFFICE VISIT SCHEDULED, NO SHOW, CALLED PT, LEFT V/M documented in this encounter Plan of Treatment Not on file documented as of this encounter Visit Diagnoses Not on filedocumented in this encounter Additional Health Concerns Infection Onset Date Last Indicated Resolved Time COVID - 19 08/11/2024 08/11/2024 08/11/2024 7:48 AM CDT documented as of this encounter Care Teams Mop Handle Assembler Relationship Specialty Start Date End Date Junie Ariza, MATE SHIP, CUSTOMER SERVICE ADVISOR [address] [place] [phone] PCP - General Family Medicine 12/27/21 Felix Estrada DO [address] [place] [phone] Consulting Physician Oncology 12/27/21 documented as of this encounter
--- OUTSIDE RECORDS SUMMARY | 2025-08-22 15:41 | XMS_ITS | Patient Health Record ---
Author Organization [facility] Address [address] [place] [address] Care Team Providers Care Casino Cage Manager Name Role Phone Ger Rivera Primary Care Provider Yrn Roberto Unavailable [phone] Rico Barahona Unavailable [phone] Allergies No Known Allergies Results Component Value Reference Range Notes 12 Panel Urine Drug Screen Reviewed date:01/19/2025 09:11:07 AM Interpretation: Performing Lab: Notes/Report: THC pos FRANTZ neg MOP (OPI) neg AMP neg MET neg BAR neg BZO neg MDMA neg MTD neg OXY neg PCP neg BUP neg Reason For Referral No Information Medications Medication SIG (Take, Route, Frequency, Duration) Notes Start Date End Date Status Vyvanse 40 MG 1 capsule in the morning Orally Once a day; Duration: 30 days Refill #1 05/23/2025 Active Lurasidone HCl 40 MG 1 tablet with food Orally Once a day; Duration: 30 days 08/11/2023 Active Vyvanse 40 MG 1 capsule in the morning Orally Once a day.; Duration: 30 days Refill #2 05/23/2025 Active Propranolol HCl 10 MG 1 tablet on an empty stomach Orally every 12 hrs; Duration: 30 days As needed for anxiety 05/23/2025 Active buPROPion HCl ER (Smoking Det) 150 MG 1 tablet Orally twice a day; Duration: 30 days 09/30/2023 Active Social History Tobacco Use: Social History Observation Description Date Details (start date - stop date) Current Smoker 04/18/2003 - NA Sex Assigned At : Social History Observation Description Sex Assigned At Female Dont use, Tobacco Use/Smoking Question Answer Notes Are you a current smoker How often do you smoke cigarettes? every day How many cigarettes a day do you smoke? 11-20 How soon after you wake up d o you smoke your first cigarette? 6-30 minutes Are you interested in quitting? Ready to quit Additional Findings: Tobacco User Modera te cigarette smoker (10-19 cigs/day) Tobacco Control (Standard) Question Answer Notes Additional Findings: Tobacco user Modera te cigarette smoker (10-19 cigs/day) When did you start smoking? 04/18/2003 How many cigarettes a day do you smoke? 11-20 How soon after you wake up d o you smoke your first cigarette? Within 5 minutes Are you interested in quitting? Ready to quit Tobacco use: Current smoker Problems Problem Type SNOMED Code ICD Code Onset Dates Problem Status W/U Status Risk Notes Problem Morbid obesity (disorder) (752895864) Morbid (severe) obesity due to excess calories (E66.01) Active confirmed Problem Tobacco user (227101069) Nicotine dependence, unspecified, uncomplicated (F17.200) Active confirmed Problem Urinary tract obstruction (0904382) Obstructive and reflux uropathy, unspecified (N13.9) Active confirmed Problem Intestinal infectious disease (041798731) Contact with and (suspected) exposure to other communicable diseases (Z20.89) Active confirmed Problem Anxiety (27858529) Anxiety (F41.9) Active confi rmed Problem Bipolar 1 disorder (449072615) Bipolar 1 disorder (F31.9) Active confirmed Problem Nephrolithiasis (04051843) Nephrolithiasis (N20.0) Active confirmed Problem Nicotine dependence (89329159) Nicotine dependence (F17.200) Active confirmed Problem Binge eating disorder (648609720) Binge eating disorder (F50.81) Active confirmed Problem Thrombocytopenic disorder (121297013) Low platelet count (D69.6) Active confirmed Vital Signs Heart Rate 74 /min 01/19/2025 Blood pressure diastolic 82 mm Hg 01/19/2025 Oximetry 98 % 01/19/2025 Height 66 in 01/19/2025 Blood pressure systolic 122 mm Hg 01/19/2025 Weight 273 lb 2 oz lbs 01/19/2025 BMI 44.08 kg/m2 01/19/2025 Encounters Encounter Location Date Provider Diagnosis [address] [place] [address] 12/06/2024 Rico Barahona Bipolar 1 disorder F31.9 and Binge eating disorder, moderate F50.8[address] [address] 01/19/2025 Rico Barahona Bipolar 1 disorder F31.9 ; Binge eating disorder, severe F50.812 ; Morbid (severe) obesity due to excess calories E66.01 ; Nicotine dependence, unspecified, uncomplicated F17.200 and Medication monitoring encounter Z51.[address] [address] 02/13/2025 Rico Barahona Bipolar 1 disorder F31.9 ; Morbid (severe) obesity due to excess calories E66.01 ; Nicotine dependence, unspecified, uncomplicated F17.200 and Binge eating disorder, severe F50.[address] [place] [address] 03/16/2025 Rico Barahona Bipolar 1 disorder F31.9 ; Binge eating disorder, severe F50.812 and Nicotine dependence, unspecified, uncomplicated F17.[address] [address] 05/23/2025 Rico Barahona Bipolar 1 disorder F31.9 ; Binge eating disorder, severe F50.812 ; Nicotine dependence, unspecified, uncomplicated F17.200 and Anxiety F41.[address] [address] 01/19/2025 Yrn Roberto Contact with and (suspected) exposure to other communicable diseases Z20.89 [facility]ly [facility] [address] [place] [address] 03/17/2025 Rico Barahona Nicotine dependence, unspecified, uncomplicated F17.200 Assessments Encounter Date Diagnosis (ICD Code) Assessment Notes Treatment Notes Treatment Clinical Notes Section Notes 12/06/2024 Bipolar 1 disorder (ICD-10 - F31.9) Client interested in restarting medication. She is having issues with mood instability and binge eating. She did relatively well in past on lurasidone and bupropion - was smoking less with less binging. States she is interested in Vyvanse. Discussed mood stability needs to take priority and that this can be discussed and follow up appointment in office. She is agreeable to this. Discussed to take 0.5 tablet of lurasidone for one week then increase to dose of 40 mg - which was dose that she was stabilized on before. 12/06/2024 Binge eating disorder, moderate (ICD-10 - F50.811) Client interested in restarting medication. She is having issues with mood instability and binge eating. She did relatively well in past on lurasidone and bupropion - was smoking less with less binging. States she is interested in Vyvanse. Discussed mood stability needs to take priority and that this can be discussed and follow up appointment in office. She is agreeable to this. Discussed to take 0.5 tablet of lurasidone for one week then increase to dose of 40 mg - which was dose that she was stabilized on before. 01/19/2025 Bipolar 1 disorder (ICD-10 - F31.9) Client agreeable to UDS and trial of Vyvanse at 30 mg starting dose. No other changes to treatment plan. 01/19/2025 Binge eating disorder, severe (ICD-10 - F50.812) Client agreeable to UDS and trial of Vyvanse at 30 mg starting dose. No other changes to treatment plan. 01/19/2025 Contact with and (suspected) exposure to other communicable diseases (ICD-10 - Z20.89) 02/13/2025 Morbid (severe) obesity due to excess calories (ICD-10 - E66.01) Client doing well with addition of Vyvanse at last appt. Lessened depression. Much lessened binge eating. Bipolar affect not destabilized (no iman), states did have initial anxiety for brief stint but went away quickly. Effects have started to diminish some and some increase in binge eating lately, though still much better than before. Client open to trial of 40 mg, though wants to reassess in one month with option to go back down to 30 mg if needed. No other changes to treatment plan. 03/16/2025 Bipolar 1 disorder (ICD-10 - F31.9) No changes needed to treatment plan at this time. 03/16/2025 Binge eating disorder, severe (ICD-10 - F50.812) No changes needed to treatment plan at this time. 03/17/2025 Nicotine dependence, unspecified, uncomplicated (ICD-10 - F17.200) 02/13/2025 Bipolar 1 disorder (ICD-10 - F31.9) Client doing well with addition of Vyvanse at last appt. Lessened depression. Much lessened binge eating. Bipolar affect not destabilized (no iman), states did have initial anxiety for brief stint but went away quickly. Effects have started to diminish some and some increase in binge eating lately, though still much better than before. Client open to trial of 40 mg, though wants to reassess in one month with option to go back down to 30 mg if needed. No other changes to treatment plan. 05/23/2025 Bipolar 1 disorder (ICD-10 - F31.9) Client open to trial of propranolol prn for anxiety. No other changes to treatment plan at this time. 05/23/2025 Binge eating disorder, severe (ICD-10 - F50.812) Client open to trial of propranolol prn for anxiety. No other changes to treatment plan at this time. 05/23/2025 Nicotine dependence, unspecified, uncomplicated (ICD-10 - F17.200) Client open to trial of propranolol prn for anxiety. No other changes to treatment plan at this time. 03/16/2025 Nicotine dependence, unspecified, uncomplicated (ICD-10 - F17.200) No changes needed to treatment plan at this time. 02/13/2025 Nicotine dependence, unspecified, uncomplicated (ICD-10 - F17.200) Client doing well with addition of Vyvanse at last appt. Lessened depression. Much lessened binge eating. Bipolar affect not destabilized (no iman), states did have initial anxiety for brief stint but went away quickly. Effects have started to diminish some and some increase in binge eating lately, though still much better than before. Client open to trial of 40 mg, though wants to reassess in one month with option to go back down to 30 mg if needed. No other changes to treatment plan. 01/19/2025 Morbid (severe) obesity due to excess calories (ICD-10 - E66.01) Client agreeable to UDS and trial of Vyvanse at 30 mg starting dose. No other changes to treatment plan. 01/19/2025 Nicotine dependence, unspecified, uncomplicated (ICD-10 - F17.200) Client agreeable to UDS and trial of Vyvanse at 30 mg starting dose. No other changes to treatment plan. 05/23/2025 Anxiety (ICD-10 - F41.9) Client open to trial of propranolol prn for anxiety. No other changes to treatment plan at this time. 02/13/2025 Binge eating disorder, severe (ICD-10 - F50.812) Client doing well with addition of Vyvanse at last appt. Lessened depression. Much lessened binge eating. Bipolar affect not destabilized (no iman), states did have initial anxiety for brief stint but went away quickly. Effects have started to diminish some and some increase in binge eating lately, though still much better than before. Client open to trial of 40 mg, though wants to reassess in one month with option to go back down to 30 mg if needed. No other changes to treatment plan. 01/19/2025 Medication monitoring encounter (ICD-10 - Z51.81) Client agreeable to UDS and trial of Vyvanse at 30 mg starting dose. No other changes to treatment plan. 12/06/2024 Other Discussed sleep hygiene and caffeine intake with encouragement to limit electronic devices an hour before bed and to limit caffeine after 3:00pm. Exercise benefits for mood and health discussed. Psychoeducation regarding psychiatric illness provided. Client was educated about risks and benefits of medication, alternatives to medication, off label uses of medication, suicidal ideation with SSRIs, self-administratio n and compliance with medication along with how to safely store medication. Verbal informed consent obtained. Client agrees to return sooner if symptoms worsen or if suicidal or homicidal ideations occur. Client has the phone number to the 24-hour crisis line at [facility]. Questions addressed. Client verbalized understanding of all information and is agreeable to treatment plan. Client interested in restarting medication. She is having issues with mood instability and binge eating. She did relatively well in past on lurasidone and bupropion - was smoking less with less binging. States she is interested in Vyvanse. Discussed mood stability needs to take priority and that this can be discussed and follow up appointment in office. She is agreeable to this. Discussed to take 0.5 tablet of lurasidone for one week then increase to dose of 40 mg - which was dose that she was stabilized on before. [place]19[place]2025 [place]. Discussed sleep hygiene and caffeine intake with encouragement to limit electronic devices an hour before bed and to limit caffeine after 3:00pm. Exercise benefits for mood and health discussed. Psychoeducation regarding psychiatric illness provided. Client was educated about risks and benefits of medication, alternatives to medication, off label uses of medication, suicidal ideation with SSRIs, self-administratio n and compliance with medication along with how to safely store medication. Verbal informed consent obtained. Client agrees to return sooner if symptoms worsen or if suicidal or homicidal ideations occur. Client has the phone number to the 24-hour crisis line at [facility]. Questions addressed. Client verbalized understanding of all information and is agreeable to treatment plan. Client agreeable to UDS and trial of Vyvanse at 30 mg starting dose. No other changes to treatment plan. 02/13/2025 [place]. Discussed sleep hygiene and caffeine intake with encouragement to limit electronic devices an hour before bed and to limit caffeine after 3:00pm. Exercise benefits for mood and health discussed. Psychoeducation regarding psychiatric illness provided. Client was educated about risks and benefits of medication, alternatives to medication, off label uses of medication, suicidal ideation with SSRIs, self-administratio n and compliance with medication along with how to safely store medication. Verbal informed consent obtained. Client agrees to return sooner if symptoms worsen or if suicidal or homicidal ideations occur. Client has the phone number to the 24-hour crisis line at [facility]. Questions addressed. Client verbalized understanding of all information and is agreeable to treatment plan. Client doing well with addition of Vyvanse at last appt. Lessened depression. Much lessened binge eating. Bipolar affect not destabilized (no iman), states did have initial anxiety for brief stint but went away quickly. Effects have started to diminish some and some increase in binge eating lately, though still much better than before. Client open to trial of 40 mg, though wants to reassess in one month with option to go back down to 30 mg if needed. No other changes to treatment plan. 03/16/2025 [place] issues [place]. Discussed sleep hygiene and caffeine intake with encouragement to limit electronic devices an hour before bed and to limit caffeine after 3:00pm. Exercise benefits for mood and health discussed. Psychoeducation regarding psychiatric illness provided. Client was educated about risks and benefits of medication, alternatives to medication, off label uses of medication, suicidal ideation with SSRIs, self-administratio n and compliance with medication along with how to safely store medication. Verbal informed consent obtained. Client agrees to return sooner if symptoms worsen or if suicidal or homicidal ideations occur. Client has the phone number to the 24-hour crisis line at [facility]. Questions addressed. Client verbalized understanding of all information and is agreeable to treatment plan. No changes needed to treatment plan at this time. 05/23/2025 Other Discussed sleep hygiene and caffeine intake with encouragement to limit electronic devices an hour before bed and to limit caffeine after 3:00pm. Exercise benefits for mood and health discussed. Psychoeducation regarding psychiatric illness provided. Client was educated about risks and benefits of medication, alternatives to medication, off label uses of medication, suicidal ideation with SSRIs, self-administratio n and compliance with medication along with how to safely store medication. Verbal informed consent obtained. Client agrees to return sooner if symptoms worsen or if suicidal or homicidal ideations occur. Client has the phone number to the 24-hour crisis line at [facility]. Questions addressed. Client verbalized understanding of all information and is agreeable to treatment plan. Client open to trial of propranolol prn for anxiety. No other changes to treatment plan at this time. Plan Of Treatment No Information Insurance Providers Payer Name Payer Address Payer Phone Subscriber Number Group Number Insured Name Patient Relationship to Insured Coverage Start Date Coverage End Date [employer] [facility] Attn Claims Department [address] [place] [address] [phone] [id number] [facility] - [facility] the insured 3 [facility] Attn Claims Department [address] [place] [address] [phone] [id number] [facility] patient is the insured 3 Medical (General) History Medical History History ICD Code obesity Surgical History Surgery Date(Month/Year) hernia repair 2x cholecystectomy 2012 section 4 Hospitalization History Reason Date(Month/Year) Hospitalized voluntary admission for dep ression 2013 [facility] for one year 2003 Hospitalized - SI and OD on medications 2002
--- OUTSIDE RECORDS SUMMARY | 2025-08-22 15:41 | XMS_ITS | Clinical Summary ---
Author Organization [facility] Address [address] [place] [address] Care Team Providers Care Court Reporter Name Role Phone Gurjit Bermudez MD Primary Care Provider [phone] Gurjit Bermudez MD Unavailable [phone] Allergies No known active allergies Medications acetaminophen 500 mg capsule Take 2 capsules (1,000 mg total) by mouth every 6 (six) hours as needed for pain (1st line). 60 tablet 2 8 Active carvedilol (COREG) 6.25 mg tablet Take 1 tablet (6.25 mg total) by mouth 2 (two) times a day with meals. 60 tablet 2 8 Active docusate sodium (COLACE) 100 mg capsuleIndicati ons:constipatio n Take 1 capsule (100 mg total) by mouth 2 (two) times a day. 60 capsule 2 8 Active oxyCODONE (ROXICODONE) 5 mg immediate release tabletIndicatio ns:Pain Take 1 tablet (5 mg total) by mouth every 4 (four) hours as needed for pain (for severe pain unrelieved by tylenol). 30 tablet 8 Active blood pressure kit-extra large kitIndications: check blood pressure at home once daily and record 1 Units daily. 1 kit 8 Active NIFEdipine (PROCARDIA XL/ADALAT CC) 30 mg 24 hr tablet Take 1 tablet (30 mg total) by mouth daily. 30 tablet 8 Active ibuprofen (ADVIL,MOTRIN) 800 mg tablet Take 1 tablet (800 mg total) by mouth 3 (three) times a day with meals 15 tablet 9 Active traMADoL (ULTRAM) 50 mg tablet Take 1 tablet (50 mg total) by mouth every 8 (eight) hours as needed for pain 5 tablet 5 Active naproxen (NAPROSYN) 500 mg tablet Take 1 tablet (500 mg total) by mouth 2 (two) times a day with meals 30 tablet 5 Active methocarbamoL (ROBAXIN) 500 mg tablet Take 1 tablet (500 mg total) by mouth 2 (two) times a day 20 tablet 5 Active Active Problems Problem Noted Date Diagnosed Date Obstetric pulmonary embolism 04/30/2018 Acute pulmonary insufficiency 04/29/2018 Pulmonary edema 04/29/2018 Pre-eclampsia in period 04/29/2018 Leukocytosis 04/29/2018 Acute kidney injury 04/29/2018 Anemia 04/29/2018 Thrombocytosis 04/29/2018 Acute pain 04/29/2018 Electrolyte abnormality 04/29/2018 Resolved Problems Problem Noted Date Diagnosed Date Resolved Date Hypoglycemia 04/29/2018 04/30/2018 Surgical History Surgery Date Site/Laterality Comments CHOLECYSTECTOMY SECTION CHOLECYSTECTOMY 10/19/2011 - 10/18/2012 LITHOTRIPSY Medical History Medical History Date Comments Gestational diabetes Pulmonary embolism Herpes Hypertension Renal disorder Kidney stone Smoker H/O self mutilation Family History Medical History Relation Name Comments Diabetes Father Diabetes Sister Relation Name Status Comments Father Sister Social History Tobacco Use Types Packs/Day Years Used Date Smoking Tobacco: Every Day Cigarettes 0.5 22.3 Started: 04/29/2003 Smokeless Tobacco: Never Alcohol Use Standard Drinks/Week Comments Not Currently 0 (1 standard drink = 0.6 oz pur e alcohol) Personal Safety Answer Date Recorded Have you ever been in or are you currently in a harmful physical or emotional relationship or is someone making you feel afraid or unsafe? Denies 12/04/2024 Comments No Sex and Gender Information Value Date Recorded Sex Assigned at Not on file Legal Sex Female 7:42 PM [employer] Gender Identity Female 11/25/2021 12:25 PM [employer] Sexual Orientation Straight 11/25/2021 12 :25 PM [employer] Obstetrics History Para Term AB IAB SAB Ectopic Multiple Livin g Live Births 6 5 5 5 5 Date Outcome GA Total Labor Labor/2nd/3rd Weight Sex Type Anes PTL Olivia A1 A5 Name Clin 2006 Term M N Livin g Complications:Post He morrhage 2007 Term M C-S t incis Livin g 2009 Term F C-S t incis Livin g 2012 Term F C-S t incis Livin g 2018 Term M C-S t incis N Livin g Complications:None Last Filed Vital Signs Vital Sign Reading Time Taken Comments Blood Pressure 150/71 12/04/2024 12:08 PM [employer] Pulse 78 12/04/2024 12:08 PM [employer] Temperature 36.7 C (98.1 F) 12/04/2024 12:08 PM [employer] Respiratory Rate 16 12/04/2024 12:08 PM [employer] Oxygen Saturation 98% 12/04/2024 12:08 PM [employer] Inhaled Oxygen Concentration - - Weight 131.5 kg (290 lb) 12/04/2024 12:08 PM [employer] Height 167.6 cm (5' 6) 12/04/2024 12:08 PM [employer] Body Mass Index 46.81 12/04/2024 12:08 PM [employer] Plan of Treatment Health Maintenance Due Date Last Done Comments Cervical Cancer Screening 1989 Depression Screening 1989 Hepatitis C Screening 1989 DTaP/Tdap/Td Vaccine (1 - Tdap) 2000 Varicella Vaccines (1 of 2 - 13+ 2-dose series) 2001 Hepatitis B Screening 2007 Regular Well Visit/Exam 18-64 2007 Pneumococcal vaccine <65 (1 of 2 - PCV) 2008 HPV Vaccines (1 - 3-dose SCDM series) 2016 Influenza Vaccine (#1) 2025 Insurance [facility] MEDICAID [facility] PLAN [facility] Advance Directives For more information, please contact: [phone] * Full Code (Latest Code Status on File) Date Activated Date Inactivated Comments 04/29/2018 4:47 AM 05/04/2018 3:[address] Reporter Relationship Specialty [place] [address] [place] [id number] PCP - General Internal Medicine 11/12/21 [place] [address] [place] [id number] 11/12/21
--- OUTSIDE RECORDS SUMMARY | 2025-08-22 15:41 | XMS_ITS | Clinical Summary ---
Author Organization [facility] Address [address], [address] [place] [address] Phone Care Team Providers Care Party Supply Specialist Name Role Phone Junie Ariza APRN, LEONILA Primary Care Prov ider Felix Estrada DO Unavailable [phone] Allergies Active Allergy Reactions Criticality Noted Date Comments Metoclopramide Anxiety 03/27/2025 Pt reports feeling like she is jumping out of her skin and feels very flushed. Medications buPROPion SR (WELLBUTRIN SR) 150 MG TABLET SR 12 HR Take 150 mg by mouth. 9 Active HYDROcodone-anand taminophen (NORCO) 5-325 MG Tablet Take 1 Tablet by mouth. 5 Active IRON-VITAMIN C PO Take by mouth. Activ e cefpodoxime (VANTIN) 200 MG Tablet Take 1 Tablet by mouth every 12 hours. 20 Tablet 4 Active albuterol 108 (90 Base) MCG/ACT Aerosol Solution take 2 Puffs by inhalation every 6 hours as needed for Cough. 3.5 g 4 Active loratadine (CLARITIN) 10 MG Tablet Take 1 Tablet by mouth daily. 10 Tablet 4 Active Active Problems Problem Noted Date Diagnosed Date Iron deficiency anemia, unspecified 03/11/2022 Iron deficiency 03/10/2022 Obstetric pulmonary embolism 04/30/2018 Leukocytosis 04/29/2018 Anemia 04/29/2018 Thrombocytosis 04/29/2018 Acute pulmonary insufficiency 04/29/2018 Family History Medical History Relation Name Comments Diabetes Father Diabetes Sister Relation Name Status Comments Brother Alive Father Alive Mother Alive Sister Alive Social History Tobacco Use Types Packs/Day Years Used Date Smoking Tobacco: Every Day Cigarettes 0.5 15 Smokeless Tobacco: Never Alcohol Use Standard Drinks/Week Comments Never 0 (1 standard drink = 0.6 oz pur e alcohol) PHQ-2 Answer Date Recorded Total Score - Questions 1-9 0 02/17 Comments No Sex and Gender Information Value Date Recorded Sex Assigned at Not on file 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 Gender Identity Not on file Sexual Orientation Not on file Last Filed Vital Signs Vital Sign Reading Time Taken Comments Blood Pressure 132/70 03/27/2025 2:30 PM CDT Pulse 60 03/27/2025 2:30 PM CDT Temperature 36.3 C (97.3 F) 03/27/2025 9:29 AM CDT Respiratory Rate 17 03/27/2025 2:30 PM CDT Oxygen Saturation 99% 03/27/2025 2:30 PM CDT Inhaled Oxygen Concentration - - Weight 111.1 kg (245 lb) 03/27/2025 9:29 AM CDT Height 167.6 cm (5' 6) 03/27/2025 9:29 AM CDT Body Mass Index 39.54 03/27/2025 9:29 AM CDT Plan of Treatment Health Maintenance Due Date Last Done Comments Hepatitis C Virus (HCV) Screening 1989 TdaP Immunization 1989 Hepatitis B Immunization (1 of 3 - 19+ 3-dose series) 2008 Pneumococcal Immunization Co mbined (1 of 2 - PCV) 2008 Pap Smear 2010 Human Papillomavirus (HPV) Immunization (1 - 3-dose SCDM series) 2016 Cervical Cancer Screening (CCS) 2019 HPV/Cotest 2019 Influenza Immunization (#1) 2025 SARS-COV-2 Immunization ( - season) 2025 Respiratory Syncytial Virus (RSV) Immunization (Adult) (1 - 1-dose 75+ series) 2064 Meningococcal Immunization (ACWY) Aged Out No longer eligible based on patient's age to complete this topic Rotavirus Immunization Aged Out No lo nger eligible based on patient's age to complete this topic Insurance Care Teams Party Supply Specialist Relationship Specialty Start Date End Date Junie Ariza, CLINICAL CASE MANAGER, DRUM CLEANER [address] [phone] PCP - General Family Medicine 12/27/21 Felix Estrada DO [address] [place] [id number] Consulting Physician Oncology 12/27/21
--- OUTSIDE RECORDS SUMMARY | 2025-08-22 15:41 | XMS_ITS | Clinical Summary ---
Author Organization [facility] Address [address] [place] [address] Care Team Providers Care Bag Patcher Name Role Phone None, Provider MD Primary Care Provider Unavaila ble Allergies No known active allergies Medications No known medications Social History Tobacco Use Types Packs/Day Years Used Date Smoking Tobacco: Never Assessed Comments Unknown Sex and Gender Information Value Date Recorded Sex Assigned at Not on file Legal Sex Female 12:03 PM CDT Gender Identity Not on file Sexual Orientation Not on file Last Filed Vital Signs Vital Sign Reading Time Taken Comments Blood Pressure 121/75 03/21/2023 12:10 PM CDT Pulse 62 03/21/2023 12:09 PM CDT Temperature 36.6 C (97.8 F) 03/21/2023 12:09 PM CDT Respiratory Rate 16 03/21/2023 12:09 PM CDT Oxygen Saturation 98% 03/21/2023 12:15 PM CDT Inhaled Oxygen Concentration - - Weight 124.7 kg (275 lb) 03/21/2023 12:09 PM CDT Height 167.6 cm (5' 6) 03/21/2023 12:09 PM CDT Body Mass Index 44.39 03/21/2023 12:09 PM CDT Plan of Treatment Health Maintenance Due Date Last Done Comments Cervical Cancer Screening Pa p Smear (Age 30 to 64) Every 3 Years 1989 Annual Physical 1992 Hepatitis C 2007 DTaP, Tdap and Td Vaccines ( 1 - Tdap) 2008 Hepatitis B Vaccines (1 of 3 - 19+ 3-dose series) 2008 HPV Vaccines (1 - 3-dose SCD M series) 2016 Cervical Cancer Screening Pa p with HPV Testing (Age 30 to 64) Every 5 Years 2019 Cervical Cancer Screening with HPV 2019 COVID-19 Vaccine ( - 2024-2 6 season) 2025 Influenza Adult (#1) 2025 Hepatitis A Vaccines Aged Out No long er eligible based on patient's age to complete this topic Meningococcal B Vaccine Aged Out No l onger eligible based on patient's age to complete this topic Meningococcal Vaccine Aged Out No angela brian eligible based on patient's age to complete this topic Pneumococcal Vaccine: Pediat rics (0 to 5 Years) and At-Risk Patients (6 to 49 Years) Aged Out No longer eligible b ased on patient's age to complete this topic RSV Immunizations Under 20 Months Aged Out No longer eligible based on patient's age to complete this topic Insurance Care Teams Bag Patcher Relationship Specialty Start Date End Date None, Provider, PCP - General UNKNOWN PHYSICIAN SPECIALTY 03/21/23
--- OUTSIDE RECORDS SUMMARY | 2025-08-22 15:41 | XMS_ITS ---
Author Organization [facility] Address [address], [facility] [address] [place] [address] Phone Care Team Providers Care Printing Equipment Mechanic Name Role Phone Junie Ariza APRN, DIRECTOR OF ENTERTAINMENT Primary Care Prov ider Felix Estrada DO Unavailable [phone] [facility] Status:Enrolled (Active) Start date:07/13/2025 Enrollment date:07/13/2025 Related social drivers of health:Social Connections, Alcohol Use, Tobacco Use, Financial Resource Strain, Stress, Physical Activity,Food Insecurity, Transportation Needs, Housing Stability, Utilities Continued Care and Services Coordination
--- OUTSIDE RECORDS SUMMARY | 2025-08-22 15:41 | XMS_ITS | Encounter Summary ---
Author Organization [facility] Address [address] [place] [address] Care Team Providers Care Orthotics Technician Name Role Phone No, Physician Primary Care Provider [phone] Gurjit Bermudez MD Primary Care Provider [phone] Gurjit Bermudez MD Primary Care Provider [phone] Gurjit Bermudez MD Unavailable [phone] Encounter Details Date Type Department Care Team (Late st Contact Info) Description 04/29/[address] [address] Loni Jauregui MD [facility] [address] [place] [id number] Social History Tobacco Use Types Packs/Day Years Used Date Smoking Tobacco: Every Day Cigarettes 0.3 22.3 Started: 04/29/2003 Smokeless Tobacco: Never Alcohol Use Standard Drinks/Week Comments No 0 (1 standard drink = 0.6 oz pur e alcohol) Comments Yes Sex and Gender Information Value Date Recorded Sex Assigned at Not on file Legal Sex Female 7:42 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[employer] Gender Identity Female 11/25/2021 12:25 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[employer] Sexual Orientation Straight 11/25/2021 12 :25 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[employer] documented as of this encounter Plan of Treatment Not on file documented as of this encounter Visit Diagnoses Not on filedocumented in this encounter Care Teams Orthotics Technician Relationship Specialty Start Date End Date No, Physician PCP - General 04/29/18 03/11/19 [place] [address] [place] [id number] PCP - General 03/12/19 11/11/21 [place] [address] [place] [id number] PCP - General Internal Medicine 11/12/21 [place] [address] [place] [id number] 11/12/21 documented as of this encounter
== END 2025-08-22 15:11 | disposition home or self-care (01) ==
PROVIDERS: Emergency Provider Registered Nurse
DX: N39.0 Urinary tract infection, site not specified (principal); F17.210 Nicotine dependence, cigarettes, uncomplicated; Z79.899 Other long term (current) drug therapy; Z86.711 Personal history of pulmonary embolism
CPT/HCPCS: 87086; 99213; G0463